=== PATIENT | male | born 1935 | race Caucasian/White ===

== ENCOUNTER 2017-07-13 22:37 | Inpatient (IN) | payer MEDICARE ==
[~2017-07-13] VITALS: Ht 182.9 cm; Wt 61.0 kg
[~2017-07-13 22:37] MED LIST: COUG100S PEG; IPRASOL INH; K-PHTAB PO; SENN1TAB PO; THERTAB15 PEG; THIA100 PEG; TYLE325T PO
[2017-07-13 22:39] VITALS: PULSE 57; RESP 8; O2SAT 81
[2017-07-13] MEDS ORDERED: SODIUM BICARBONATE 8.4% INJ 50 MEQ/50 ML SYR ONE (22:59)
[2017-07-13] MEDS ORDERED: CLINDAMYCIN 600 MG PREMIX 50 ML IV ONE (23:00)
[2017-07-13 23:06] VITALS: BP 177/69; PULSE 127; RESP 14; TEMP 95; O2SAT 100
[2017-07-13 23:17] VITALS: BP 186/78; PULSE 127; RESP 18; TEMP 95; O2SAT 99
[2017-07-13 23:18] VITALS: O2SAT 94
[2017-07-13 23:23] LABS: AUTOMATED NEUTROPHIL # 24.8 TH/MM3 (1.8-7.7); BASOPHIL % 0.1 % (0.0-2.0); EOSINOPHIL # 0.1 TH/MM3 (0-0.4); EOSINOPHIL % 0.2 % (0.0-4.0); HEMATOCRIT 37.4 % (39.0-51.0); LYMPH % 7.9 % (9.0-44.0); LYMPHOCYTE # 2.2 TH/MM3 (1.0-4.8); MEAN CORPUSCULAR HEMOGLOBIN 28.9 PG (27.0-34.0); MEAN CORPUSCULAR HGB CONC 31.4 % (32.0-36.0); MONO % 4.7 % (0.0-8.0); NEUT % 87.1 % (16.0-70.0); PLATELET COUNT 270 TH/MM3 (150-450); RED BLOOD COUNT 4.07 MIL/MM3 (4.50-5.90); RED CELL DISTRIBUTION WIDTH 16.7 % (11.6-17.2); WHITE BLOOD COUNT 28.4 TH/MM3 (4.0-11.0)
[2017-07-13 23:24] LABS: HEMO FLAGS AUTO DIFF
[2017-07-13] MEDS ORDERED: LORazepam 2 MG/ML VIAL ONE (23:32)
[2017-07-13 23:41] LABS: ANION GAP 11 MEQ/L (5-15); AST (GOT) 73 U/L (15-37); BICARBONATE 20.1 MEQ/L (21.0-32.0); BLOOD UREA NITROGEN 11 MG/DL (7-18); CHLORIDE 106 MEQ/L (98-107); GLOMERULAR FILTRATION RATE 85 ML/MIN (>89); MAGNESIUM 1.7 MG/DL (1.5-2.5); SODIUM (NA) 137 MEQ/L (136-145)
[2017-07-13 23:45] LABS: ALKALINE PHOSPHATASE 235 U/L (45-117); ALT (GPT) 52 U/L (12-78)
[2017-07-13] MEDS ORDERED: LORazepam 2 MG/ML VIAL IV PUSH ONE (23:45)
[2017-07-13 23:50] LABS: CREATINE KINASE 69 U/L (39-308)
--- NOTE | 2017-07-13 23:56 | RADRPT ---
EXAM DATE/TIME: 07/13/2017 23:44 [facility] COMPARISON: CHEST SINGLE AP, July 08, 2017, 10:23. INDICATIONS : Post intubation and central line placement. MEDICAL HISTORY : Throat cancer. SURGICAL HISTORY : None. ENCOUNTER: Subsequent ACUITY: 1 day PAIN SCORE: Non-responsive. LOCATION: Bilateral chest FINDINGS: The cardiac silhouette is normal in transverse diameter. Endotracheal tube is in good position above the minoo. A nasogastric tube is in place with its tip in the stomach. There is diffuse interstitial edema present. No pleural effusions are identified. CONCLUSION: 1. Interstitial pulmonary edema. This is new when compared with the prior exam. 2. Satisfactory position of endotracheal tube as above. 3. Central line is not identified Nj Romero MD on July 13, 2017 at 23:53 Board Certified Radiologist. This report was verified electronically.
[2017-07-14] VITALS (17 sets, daily range): BP systolic 50–95; BP diastolic 41–67; PULSE 86–101; RESP 18–38; TEMP 94.6–96; O2SAT 0–100
[2017-07-14 00:03] LABS: APTT (PATIENT) 40.9 SEC (24.3-30.1); INTERNATIONAL NORMALIZED RATIO 1.4 RATIO
[2017-07-14] MEDS ORDERED: [UNRECOGNIZED DRUG - OTHER] IV SCH ×2 (00:15)
[2017-07-14] MEDS ORDERED: SODIUM CHLOR 0.9% 1000 ML INJ 1,000 ML IV ONE ×4 (00:15→02:45)
[2017-07-14] MEDS ORDERED: SODIUM BICARBONATE IV SCH ×2 (00:15)
[2017-07-14 00:20] LABS: BANDS 33 % (0-6); EOSINOPHILS 2 % (0-4); PLATELET ESTIMATE SMEAR NORMAL (NORMAL); PLATELET MORPHOLOGY NORMAL (NORMAL); POLYS (SEG NEUTROPHILS) 62 % (16-70); SCAN/DIFF FINAL DIFF MANUAL; TOXIC GRANULATION 2+ (NORMAL); TOXIC VACUOLATION PRESENT (NONE SEEN); WBC DIFF SAMPLE 100
[2017-07-14 00:21] LABS: ACANTHOCYTES OCC (NORMAL)
[2017-07-14 00:25] LABS: BACTERIA, URINE RARE /hpf; BLOOD, URINE NEG (NEG); GLUCOSE,URINE NEG (NEG); HYALINE CAST, URINE 3 /lpf (RARE); KETONE, URINE NEG (NEG); MUCUS URINE FEW /lpf (OCC); NITRITE,URINE NEG (NEG); PH, URINE 5.5 (5.0-8.5); SQUAMOUS EPITHELIAL CELL URINE <1 /hpf (0-5); TRANSITIONAL EPI CELLS, URINE <1 /hpf; URIC ACID CRYSTALS, URINE RARE /hpf; URINE COLOR YELLOW (YELLW/STRAW)
[2017-07-14 00:27] LABS: COMMENT (UR) CATH-CULTURE IND; CULTURE IF INDICATED CATH CULTURE IND
--- NOTE | 2017-07-14 00:36 | PD ---
HPI Chief Complaint: Respiratory Distress Time Seen by Provider: 23:43 Travel History International Travel<30 days: No Contact w/Intl Traveler<30days: No Traveled to known affect area: No History of Present Illness HPI pt is 82 yr old male from a [place] who developed respiratoy failure at the [place] and possible aspiration PNA the paramedics attempted to intubate in route but there was much vomitus coming out of the ET tube severe assume that they were in the esophagus and pulled the tube patient is feeling extremitas when he arrives in the ER without and airway is being BVM patient is minimally responsive. Frail thin cachectic appearance covered in vomitus in the mouth and chest. Patient's blood pressure is not readable on the monitor and quickly ultrasound probe shows cardiac standstill CPR begins immediately. Patient was recently discharged from our hospital to the [facility]. On arrival He had been asked about full code and including intubation and he and his sister and son signed paper saying he would like to have everything done. I immediately secured his airway and intubate him without sedation or complication . however much vomitus does come out of his ET tube he is in cardiac arrest and CPR the incident immediately PFSH Past Medical History Arthritis: Yes Blood Disorders: No Anxiety: No Depression: Yes (UPSET ABOUT WEIGHT LOSS) Cancer: Yes (THROAT) Cardiovascular Problems: No Chemotherapy: Yes Endocrine: No Genitourinary: No Immune Disorder: No Musculoskeletal: No Neurologic: No Psychiatric: Yes Respiratory: No Radiation Therapy: Yes Past Surgical History Appendectomy: Yes Tonsillectomy: Yes Social History Alcohol Use: Yes Tobacco Use: Yes Substance Use: No Allergies-Medications (Allergen,Severity, Reaction): Coded Allergies: No Known Allergies (Unverified , 07/13/17) Reported Meds & Prescriptions Reported Meds & Active Scripts Active Thera/Beta-Carotene (Multiple Vitamin) 1 Tab Tab 1 Tab PEG DAILY Gnp Vitamin B-1 (Thiamine HCl) 100 Mg Tab 100 Mg PEG DAILY Senna Plus 8.6-50 mg (Sennosides-Docusate Sodium) 8.6 Mg-50 Mg Tab 1 Tab PO BID Cough Syrup (Guaifenesin) 100 Mg/5 Ml Syrp 200 Mg PEG Q4H PRN K-Phos (Potassium Phosphate Monobasic) 500 Mg Tab 1,000 Mg PO Q12HR 5 Days Tylenol (Acetaminophen) 325 Mg Tab 650 Mg PO Q6H PRN Duoneb (Ipratropium-Albuterol Neb) 0.5-2.5 Mg/3 Ml Neb 1 Nebule INH Q4HR NEB Reported Jevity 1.5 Meng (Nutritional Supplements) 0.06 Gram-1.5 Kcal/Ml Liq Docusate Sodium-Senna (Sennosides-Docusate Sodium) 8.6-50 Mg Tab 1 Tab PO BID Nicotine Patch (Nicotine) 14 Mg/24 Hr Patch 14 Mg T-DERMAL DAILY Review of Systems ROS Limitations: Intubated, Altered Mental Status, Unresponsive Except as stated in HPI: all other systems reviewed are Neg Physical Exam Narrative GENERAL: Patient is a thin cachectic unresponsive covered in vomitus as he comes into the critical care exam room he is being BVM no airway secured in this patient. intubated by this MTres. SKIN: Warm and dry and pale HEAD: Atraumatic. Normocephalic. EYES: Pupils equal and round. No scleral icterus. No injection or drainage. ENT: No nasal bleeding or discharge. . He has vomitus in his oropharynx I directly visualize his vocal cords and pass the 7.5 ET tube without complications however much vomitus comes out of the tube NECK: Trachea midline. No JVD. Thin cachectic CARDIOVASCULAR: Cardiac standstill.... Cardiac arrest RESPIRATORY: After intubation with an ET tube he has coarse breath sounds greater on the right than the left. I pulled the ET tube back and then he has coarse breath sounds bilaterally. GASTROINTESTINAL: Abdomen soft, non-tender , PEG tube is in the left midabdomen Hepatic and splenic margins not palpable. MUSCULOSKELETAL: Extremities . No obvious deformities. NEUROLOGICAL: Unresponsive minimal to no gag on intubation. PSYCHIATRIC: Unresponsive in extremis Data Data Last Documented VS Vital Signs Date Time Temp Pulse Resp B/P (MAP) Pulse Ox O2 Delivery O2 Flow Rate FiO2 07/14/17 00:08 100 100 07/13/17 23:18 Ventilator 07/13/17 23:17 95.0 127 18 Orders Orders B-Type Natriuretic Peptide (07/13/17 22:54) Ckmb (Isoenzyme) Profile (07/13/17 22:54) Complete Blood Count With Diff (07/13/17 22:54) Comprehensive Metabolic Panel (07/13/17 22:54) Magnesium (Mg) (07/13/17 22:54) Prothrombin Time / Inr (Pt) (07/13/17 22:54) Act Partial Throm Time (Ptt) (07/13/17 22:54) Troponin I (07/13/17 22:54) Chest, Single Ap (07/13/17 22:54) Ecg Monitoring (07/13/17 22:54) Bilateral Bp Monitoring (07/13/17 22:54) Iv Access Insert/Monitor (07/13/17 22:54) Oximetry (07/13/17 22:54) Oxygen Administration (07/13/17 22:54) Sodium Bicarbonate 8.4% Inj (Sodium Bica (07/13/17 22:59) Clindamycin 600 Mg Premix (Cleocin 600 M (07/13/17 23:00) Lactic Acid Sepsis Protocol (07/13/17 23:13) Blood Culture (07/13/17 23:13) Lorazepam Inj (Ativan Inj) (07/13/17 23:32) Fentanyl Inj (Fentanyl Inj) (07/13/17 23:45) Lorazepam Inj (Ativan Inj) (07/13/17 23:45) Sputum Culture And Gram Stain (07/14/17 00:03) Piperacil-Tazo 4.5 Gm Premix (Zosyn 4.5 (07/14/17 00:15) Lipase (07/14/17 00:05) Urinalysis - C+S If Indicated (07/14/17 00:06) Sodium Chlor 0.9% 1000 Ml Inj (Ns 1000 M (07/14/17 00:15) Sodium Chlor 0.9% 1000 Ml Inj (Ns 1000 M (07/14/17 00:15) Dextrose 5% In Wate... W/Sodium Bicarbon (07/14/17 00:15) Urinary Catheter Insert/Apply (07/14/17 00:04) Restraints Non-Violent JOANN.Q3H (07/14/17 00:04) Admit Order (Ed Use Only) (07/14/17 00:10) Labs Laboratory Tests Test 07/13/17 23:10 07/13/17 23:21 07/13/17 23:25 07/13/17 23:34 White Blood Count 28.4 TH/MM3 Red Blood Count 4.07 MIL/MM3 Hemoglobin 11.7 GM/DL Hematocrit 37.4 % Mean Corpuscular Volume 92.0 FL Mean Corpuscular Hemoglobin 28.9 PG Mean Corpuscular Hemoglobin Concent 31.4 % Red Cell Distribution Width 16.7 % Platelet Count 270 TH/MM3 Mean Platelet Volume 9.0 FL Neutrophils (%) (Auto) 87.1 % Lymphocytes (%) (Auto) 7.9 % Monocytes (%) (Auto) 4.7 % Eosinophils (%) (Auto) 0.2 % Basophils (%) (Auto) 0.1 % Neutrophils # (Auto) 24.8 TH/MM3 Lymphocytes # (Auto) 2.2 TH/MM3 Monocytes # (Auto) 1.3 TH/MM3 Eosinophils # (Auto) 0.1 TH/MM3 Basophils # (Auto) 0.0 TH/MM3 CBC Comment AUTO DIFF Differential Total Cells Counted 100 Neutrophils % (Manual) 62 % Band Neutrophils % 33 % Lymphocytes % 3 % Eosinophils % 2 % Neutrophils # (Manual) 27.0 TH/MM3 Differential Comment FINAL DIFF MANUAL Toxic Granulation 2+ Toxic Vacuolation PRESENT Platelet Estimate NORMAL Platelet Morphology Comment NORMAL Acanthocytes OCC Blood Urea Nitrogen 11 MG/DL Creatinine 0.86 MG/DL Random Glucose 110 MG/DL Total Protein 5.6 GM/DL Albumin 1.4 GM/DL Calcium Level 8.0 MG/DL Magnesium Level 1.7 MG/DL Alkaline Phosphatase 235 U/L Aspartate Amino Transf (AST/SGOT) 73 U/L Alanine Aminotransferase (ALT/SGPT) 52 U/L Total Bilirubin 1.0 MG/DL Sodium Level 137 MEQ/L Potassium Level 4.0 MEQ/L Chloride Level 106 MEQ/L Carbon Dioxide Level 20.1 MEQ/L Anion Gap 11 MEQ/L Estimat Glomerular Filtration Rate 85 ML/MIN Phosphorus Level 3.6 MG/DL Total Creatine Kinase 69 U/L Troponin I LESS THAN 0.02 NG/ML B-Type Natriuretic Peptide 165 PG/ML Lipase 60 U/L Lactic Acid Level 4.3 mmol/L Prothrombin Time 16.0 SEC Prothromb Time International Ratio 1.4 RATIO Activated Partial Thromboplast Time 40.9 SEC Urine Color YELLOW Urine Turbidity HAZY Urine pH 5.5 Urine Specific [place] 1.024 Urine Protein TRACE mg/dL Urine Glucose (UA) NEG mg/dL Urine Ketones NEG mg/dL Urine Occult Blood NEG Urine Nitrite NEG Urine Bilirubin NEG Urine Urobilinogen 2.0 MG/DL Urine Leukocyte Esterase NEG Urine RBC 5 /hpf Urine WBC 2 /hpf Urine Squamous Epithelial Cells <1 /hpf Urine Transitional Epithelial Cells <1 /hpf Urine Uric Acid Crystals RARE /hpf Urine Amorphous Sediment RARE Urine Bacteria RARE /hpf Urine Hyaline Casts 3 /lpf Urine Mucus FEW /lpf Microscopic Urinalysis Comment CATH-CULTURE IND MDM Medical Decision Making Medical Screen Exam Complete: Yes Emergency Medical Condition: Yes Differential Diagnosis pt is 82 male from [place] was discharge from inpt today and now has Aspiration PNA appearance comes from MS in destress aspiration vomiting and Paramedics attempted to INtubate and vomitus poured from tube they pulled it assuming gastric tube, I tube immediately and vomitus came out of tube again but sat improved . I then started CPR and gave epi amp and Hco3 immediately to pt and U/S cardiac stand still then HCO3 Ca Cl and pt regained Heart rhythm and US showed good contractilitiy Narrative Course I did a immediate intubation of this patient without anesthesia or sedation he was nonreactive as I intubated him much vomitus came out of his ET tube easily suction that and then to the cardiac probe on his chest saw no cardiac activity and CPR was started and then gave him an epi followed by a bicarbonate continue CPR still cardiac standstill on the ultrasound bedside liter fluid was started another epi was given CPR was continued he had PA on the monitor and cardiac standstill on the bedside sonogram another bicarbonate was given calcium chloride and CPR continued after the second bicarbonate and third epi he had normal cardiac conduction with good left ventricular contraction and a BP returned he needed no more medication but I did put up a bicarbonate drip with 3 A of bicarbonate into a liter of D5 water running 150 cc an hour to keep him alkalinizing fearing that his acidosis was using cardiac standstill patient cases called to the ICU Dr. Kelly took the admission from me attempted to put an eye central line in his IJ on the left I got cannulation with the needle but was unable to thread the wire at that point we had 3 peripheral IVs and he was stable enough to be admitted to the ICU critical care time on this patient is 120 minutes Critical Care Narrative 120 of critical care minutes intubation reassessing his cardiac activity with ultrasound bedside by ash Tee Giving cardiac meds to resuscitate him then putting him on a bicarbonate drip. Reassessing him multiple times and getting him admitted to the ICU. His vitals were stable when he left our ER Procedures Procedure Narrative I intubated this patient using RSI however patient did not need any sedation he was obtunded on arrival and an emergent need of intubation with a 4 Mac blade I immediately elevated the epiglottis saw the vocal cords past ET tube without complications removed the stylette immediately vomitus came out of the ET tube he has no chest. It vomitus in his lungs suction was done airway was secured and inflated 10 cc syringe and respiratory took over to secure the tube in place chest x-ray confirms 3 cm above the minoo Central line placement in the IJ on the left neck is ultrasound technique cannulation was successful but passing the guidewire was not and therefore I pulled the wire at the needle and applied pressure medications admitted with 3 peripheral IVs Physician Communication Physician Communication Spoke to Dr. Kelly of the ICU she accepts the patient and takes of her care Diagnosis Primary Impression: Cardiac arrest Additional Impression: Aspiration pneumonia Admitting Information Admitting Physician Requests: Admit Arhcie Su MD Jul 14, 2017 00:36
[2017-07-14] MEDS ORDERED: CHLORHEXIDINE GLUCONATE 2 % 1 PACK (2 CLOTHS) TOP PRN (00:45)
[2017-07-14] MEDS ORDERED: LACTULOSE SYRUP 20 GM/30 ML CUP PO PRN (00:45)
[2017-07-14] MEDS ORDERED: MAGNESIUM SULFATE 1 GM PREMIX 100 ML IV ONE (00:45)
[2017-07-14] MEDS ORDERED: RESP: ALBUTEROL 2.5 MG/3 ML NEB (PRN) INH (00:45)
[2017-07-14] MEDS ORDERED: ACETAMINOPHEN 325 MG TAB PO PRN (00:45)
[2017-07-14] MEDS ORDERED: MISCELLANEOUS NURSING INFORMATION XX SCH (00:45)
[2017-07-14] MEDS ORDERED: SODIUM CHLORIDE 0.9% FLUSH 10 ML FLUSH IV FLUSH PRN (00:45)
[2017-07-14] MEDS ORDERED: BISACODYL 10 MG SUPP RECTAL PRN (00:45)
[2017-07-14] MEDS ORDERED: ONDANSETRON HCL 4 MG/2 ML VIAL IV PUSH PRN (00:45)
[2017-07-14] MEDS ORDERED: MAGNESIUM HYDROXIDE SUSP 30 ML CUP PO PRN (00:45)
[2017-07-14] MEDS ORDERED: SENNOSIDES 8.6 MG TAB PO PRN (00:45)
[2017-07-14] MEDS ORDERED: NOREPINEPHRINE 4 MG/4 ML AMP ONE (00:49)
[2017-07-14] MEDS ORDERED: LEVOFLOXACIN 750 MG PREMIX INJ 150 ML IV SCH (01:00)
[2017-07-14] MEDS ORDERED: TERBUTALINE INJ 1 MG/ML AMP SQ PRN ×2 (01:00→06:00)
[2017-07-14] MEDS ORDERED: Vancomycin Consult Pharmacy 1 EA OTHER SCH (01:00)
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
[2017-07-14] MEDS: PIPERACIL-TAZO 4.5 GM PREMIX 100 ML IV SCH ×2 (01:01→05:23)
[2017-07-14] MEDS: NOREPINEPHRINE INJ 4 MG in SODIUM CHLOR 0.9% 250 ML INJ 246 ML IV PRN ×2 (01:02→05:27)
[2017-07-14 01:14] LABS: BLOOD GAS BASE EXCESS -7.3 mmol/L (-2-2); BLOOD GAS CARBOXYHEMOGLOBIN 0.5 % (0-4); BLOOD GAS HCO3 21 mmol/L (22-26); BLOOD GAS METHEMOGLOBIN 0.8 % (0-2); BLOOD GAS O2 HGB SATURATION 97 % (90-100); BLOOD GAS OXYGEN CONTENT 14.2 Vol % (12.0-20.0); BLOOD GAS PCO2 69 mmHg (38-42); BLOOD GAS PO2 147 mmHg (61-120); BLOOD GAS TOTAL HGB 10.2 G/DL (12.0-16.0); TEMP CORR TO 98.6
[2017-07-14 01:16] LABS: CRITICAL VALUE YES; DRAW SITE LT RADIAL; FIO2 100 %; NUMBER OF ARTERIAL PUNCTURES 1; OXYGEN DEVICE VENTILATOR; STAT NO; ULNAR PULSE PRESENT; VENT SETTINGS AC/RR18/VT550/PEEP10
[2017-07-14 01:28] LABS: LACTIC ACID GHOST NOT REPORTABLE
[2017-07-14] MEDS ORDERED: fentaNYL DRIP 250 ML IV PRN (01:30)
[2017-07-14] MEDS ORDERED: MIDAZOLAM HCL 2 MG/2 ML VIAL IV PUSH PRN (01:30)
[2017-07-14] MEDS ORDERED: DIATRIZOATE MEGLUM/DIATRIZOATE SOD 120 ML BTL (for RAD DIAG) PEG ONE (01:50)
[2017-07-14] MEDS ORDERED: IOHEXOL 350 MG/ML 10 ML VIAL (for RAD DIAG) IVCONTRAST ONE (01:59)
[2017-07-14] MEDS ORDERED: VANCOMYCIN 1,000 MG/NS 250 ML IV ONE ×2 (02:00)
[2017-07-14] MEDS ORDERED: NICO14DI T-DERMAL (02:20)
[2017-07-14] MEDS ORDERED: DOCU8.6T PO (02:20)
--- NOTE | 2017-07-14 02:23 | RADRPT ---
EXAM DATE/TIME: 07/14/2017 01:43 [facility] COMPARISON: No previous studies available for comparison. INDICATIONS : Altered mental status. RADIATION DOSE: 43.86 CTDIvol (mGy) ; Tabletop CT Head MEDICAL HISTORY : Throat cancer. SURGICAL HISTORY : Appendectomy. Peg tube. ENCOUNTER: Initial ACUITY: 1 day PAIN SCALE: Non-responsive LOCATION: cranial TECHNIQUE: Multiple contiguous axial images were obtained of the head. Using automated exposure control and adjustment of the mA and/or kV according to patient size, radiation dose was kept as low as reasonably achievable to obtain optimal diagnostic quality images. DICOM format image data is av ailable electronically for review and comparison. FINDINGS: Noncontrast axial head CT demonstrates the ventricles to be enlarged with a prominent sulcal pattern compatible with atrophy. No acute intracranial hemorrhage, acute cortical infarction, mass or midline shift is seen. 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 Posterior fossa struct ures are unremarkable. Bone windows demonstrate no abnormality. CONCLUSION: Atrophy. No evidence of acute intracranial pathology. Nj Romero MD on July 14, 2017 at 2:20 Board Certified Radiologist. This report was verified electronically.
[2017-07-14] MEDS ORDERED: JEVILIQ12 (02:24)
--- NOTE | 2017-07-14 02:31 | RADRPT ---
EXAM DATE/TIME: 07/14/2017 01:48 [facility] COMPARISON: CT ABDOMEN & PELVIS W CONTRAST, July 12, 2017, 15:58. INDICATIONS : Diffuse abdominal pain. Evaluate peg-tube placement. IV CONTRAST: 95 cc Omnipaque 350 (iohexol) IV ; Cumulative dose for multiple exams. ORAL CONTRAST: No oral contrast ingested. RADIATION DOSE: 11.98 CTDIvol (mGy) ; Combined studies - Thorax/Abdomen/Pelvis MEDICAL HISTORY : Throat cancer. SURGICAL HISTORY : Appendectomy. Peg tube. ENCOUNTER: Initial ACUITY: 1 day PAIN SCALE: Non-responsive LOCATION: abdomen TECHNIQUE: Volumetric scanning of the abdomen and pelvis was performed. Using automated exposure control and ad justment of the mA and/or kV according to patient size, radiation dose was kept as low as reasonably achievable to obtain optimal diagnostic quality images. DICOM format image data is available electro nically for review and comparison. FINDINGS: Moderate size bilateral pleural effusions are identified. There is subsegmental atelectasis in the b oth bases. Moderate ascites is present. The liver and spleen are normal in size and no focal defects are identif ied. Air is identified within the biliary tree. The pancreas demonstrates no evidence of mass and the re is no dilatation of the pancreatic duct. The adrenal glands are unremarkable. The right kidney is unremarkable. A 2 mm no obstructing left renal stone is present. Gastrostomy tube is in the expected position. A Jj catheter is present within the bladder which does not allow for evaluation. There is a large amount of stool within the rectum characteristic of fecal impaction CONCLUSION: 1. Gastrostomy tube in expected position 2. Fecal impaction 3. Ascites and small bowel ileus Nj Romero MD on July 14, 2017 at 2:21 Board Certified Radiologist. This report was verified electronically.
--- NOTE | 2017-07-14 02:34 | RADRPT ---
EXAM DATE/TIME: 07/14/2017 01:48 [facility] COMPARISON: No previous studies available for comparison. INDICATIONS : Pneumonia. IV CONTRAST: 95 cc Omnipaque 350 (iohexol) IV ; Cumulative dose for multiple exams. RADIATION DOSE: 11.98 CTDIvol (mGy) ; Combined studies - Thorax/Abdomen/Pelvis MEDICAL HISTORY : Throat cancer. SURGICAL HISTORY : Appendectomy. Peg tube. ENCOUNTER: Initial ACUITY: 1 day PAIN SCALE: Non-responsive LOCATION: chest TECHNIQUE: Volumetric scanning of the chest was performed. Using automated exposure control and adjustment of t he mA and/or kV according to patient size, radiation dose was kept as low as reasonably achievable to obtain optimal diagnostic quality images. DICOM format image data is available electronically for review and comparison. Follow-up recommendations for detected pulmonary nodules are based at a minimum on nodule size and pa tient risk factors according to Fleischner Society Guidelines. FINDINGS: There is patchy alveolar disease bilaterally compatible with edema or pneumonia. Moderate size bilate ral pleural effusions are identified. There is subsegmental atelectasis in the both bases. There is a 2.3 cm mass in the right apex. Malignancy is not excluded. Examination of the mediastinum demonstrates no abnormally enlarged lymph nodes by CT criteria. No axi llary or hilar abnormalities are identified. Coronary artery calcifications are present. CONCLUSION: 1. Patchy alveolar disease characteristic of edema or pneumonia. 2. Moderate bilateral effusions 3. 2.3 cm right upper lobe mass. Malignancy is not excluded. Nj Romero MD on July 14, 2017 at 2:30 Board Certified Radiologist. This report was verified electronically.
--- NOTE | 2017-07-14 03:15 | PD.PROCEDR ---
Procedure Note Procedure DATE: 07/14/17 CENTRAL LINE PLACEMENT: Left IJ vein. INDICATION: Central venous access CONSENT Procedure was done emergently as patient is hypotensive with pressors running and in need of central access. DESCRIPTION OF THE PROCEDURE The patient was placed in supine position, Trendelenburg. The skin was cleansed with Chloraprep x3. Additional barrier precautions included large sterile drape, sterile gloves, sterile gown, face mask, and hat. 1 % lidocaine was used for local anesthesia. Under direct ultrasound guidance and on single attempt, the vein was accessed with an introducer needle. The guide wire was advanced and placement confirmed with u/s. The tract was dilated. Using Seldinger technique a 7 [place] 20 cm antimicrobial coated triple-lumen catheter was advanced to a depth of 20 centimeters. The guide wire was removed. All ports had good return of dark venous blood and flushed easily with saline. The central line was secured with Stat-lock. A sterile dressing with antibiotic disc was applied. ESTIMATED BLOOD LOSS: Minimal COMPLICATIONS: No apparent complications. STAT chest x-ray is pending Bonita Kelly MD Jul 14, 2017 03:15
[2017-07-14] MEDS ORDERED: POTASSIUM CHLOR 20 MEQ PREMIX 100 ML IV PRN ×2 (03:30)
[2017-07-14] MEDS ORDERED: POTASSIUM PHOSPHATE MONOBASIC 500 MG TAB PO PRN (03:30)
[2017-07-14] MEDS ORDERED: MAGNESIUM SULFATE INJ 4 GM in SODIUM CHLORIDE 0.9% INJ 92 ML IV PRN (03:30)
[2017-07-14] MEDS ORDERED: SODIUM PHOSPHATE INJ 30 MMOL in SODIUM CHLOR 0.9% 250 ML INJ 240 ML IV PRN (03:30)
[2017-07-14] MEDS ORDERED: POTASSIUM PHOSPHATE MONOBASIC 500 MG TAB PO/TUBE PRN (03:30)
[2017-07-14] MEDS ORDERED: POTASSIUM CHLORIDE 25 MEQ EFFERVESCENT TAB PO PRN (03:30)
[2017-07-14] MEDS ORDERED: POTASSIUM PHOSPHATE INJ 30 MMOL in SODIUM CHLOR 0.9% 250 ML INJ 250 ML IV PRN (03:30)
[2017-07-14] MEDS ORDERED: POTASSIUM CHLOR 40 MEQ PREMIX 100 ML IV PRN ×2 (03:30)
[2017-07-14] MEDS ORDERED: MAGNESIUM OXIDE 400 MG TAB PO PRN (03:30)
[2017-07-14] MEDS ORDERED: MAGNESIUM SULFATE INJ 2 GM in SODIUM CHLORIDE 0.9% INJ 96 ML IV PRN (03:30)
[2017-07-14 03:52] LABS: BLOOD GAS VENOUS BASE EXCESS -5.4 mmol/L (-2-2); BLOOD GAS VENOUS HCO3 23 mmol/L (22-26); BLOOD GAS VENOUS O2 CONTENT 9.3 Vol % (9.0-17.0); BLOOD GAS VENOUS O2 HGB SAT 59 % (70-76); BLOOD GAS VENOUS PCO2 73 mmHg (44-48); BLOOD GAS VENOUS PO2 39 mmHg (35-40); BLOOD GAS VENOUS pH 7.12 (7.360-7.400); CRITICAL VALUE YES; DRAW SITE LINE; FIO2 70 %; OXYGEN DEVICE VENTILATOR; STAT YES; TEMP CORR TO 98.6; VENT SETTINGS AC/16/600/PEEP 10
[2017-07-14] MEDS ORDERED: CHLORHEXIDINE GLUCONATE 2 % 1 PACK (2 CLOTHS) TOP SCH (04:00)
[2017-07-14] MEDS ORDERED: RESP: ALBUTEROL 2.5 MG/IPRATROPIUM 0.5 MG NEB (SCH) INH (04:00)
[2017-07-14] MEDS ORDERED: VASOPRESSIN INJ 40 UNITS in DEXTROSE 5% IN WATER 100ML INJ 98 ML IV SCH ×2 (04:36)
[2017-07-14] MEDS ORDERED: LACTATED RINGER'S 1000 ML INJ 1,000 ML IV SCH (04:45)
[2017-07-14] MEDS ORDERED: CISATRACURIUM BESYLATE 20 MG/10 ML VIAL IV PUSH ONE (05:00)
[2017-07-14] MEDS ORDERED: VASOPRESSIN 20 UNITS/ML VIAL (IVTITR) ONE (05:14)
[2017-07-14 05:19] LABS: BLOOD GAS BASE EXCESS -7.9 mmol/L (-2-2); BLOOD GAS CARBOXYHEMOGLOBIN 0.3 % (0-4); BLOOD GAS HCO3 20 mmol/L (22-26); BLOOD GAS O2 HGB SATURATION 83 % (90-100); BLOOD GAS OXYGEN CONTENT 13.2 Vol % (12.0-20.0); BLOOD GAS PCO2 64 mmHg (38-42); BLOOD GAS PO2 59 mmHg (61-120); BLOOD GAS TOTAL HGB 11.3 G/DL (12.0-16.0); CRITICAL VALUE YES; OXYGEN DEVICE VENTILATOR; TEMP CORR TO 98.6
[2017-07-14 05:20] LABS: DRAW SITE ART LINE; FIO2 100 %; STAT NO; VENT SETTINGS PC/AC
[2017-07-14] MEDS: HYDROCORTISONE SOD SUCCINATE 100 MG VIAL IV PUSH SCH ×2 (05:25→05:55)
[2017-07-14 05:38] LABS: LACTIC ACID GHOST NOT REPORTABLE
--- NOTE | 2017-07-14 05:44 | RADRPT ---
EXAM DATE/TIME: 07/14/2017 03:26 [facility] COMPARISON: CHEST SINGLE AP, July 13, 2017, 23:44. INDICATIONS : Central line placement, left internal jugular approach. MEDICAL HISTORY : Throat Ca SURGICAL HISTORY : None. ENCOUNTER: Initial ACUITY: 1 day PAIN SCORE: Non-responsive. LOCATION: Bilateral chest FINDINGS: The cardiac silhouette is normal in transverse diameter. There is patchy alveolar disease bilaterally compatible with edema or pneumonia. The findings have worsened when compared with the prior examinat ion. A left sided internal jugular vein catheter is in place without pneumothorax with its tip in the superior vena cava. CONCLUSION: 1. Uncomplicated line placement. No evidence of pneumothorax. 2. Worsening pulmonary edema Nj Romero MD on July 14, 2017 at 5:42 Board Certified Radiologist. This report was verified electronically.
[2017-07-14] MEDS ORDERED: METOCLOPRAMIDE HCL 10 MG/2 ML VIAL IV PUSH SCH ×2 (06:00→14:00)
[2017-07-14] MEDS ORDERED: PHENYLEPHRINE INJ 160 MG in DEXTROSE 5% IN WATE 500 ML INJ 484 ML IV PRN ×2 (06:00)
[2017-07-14] MEDS ORDERED: EPOPROSTENOL NEB SOLUTION 50 NG/KG/MIN 100 ML NEB SCH ×2 (06:15)
[2017-07-14] MEDS ORDERED: EPINEPHrine (1:1000) INJ 2 MG in DEXTROSE 5% IN WATER INJ 250 ML IV PRN ×2 (06:15)
[2017-07-14] MEDS ORDERED: MIDAZOLAM HCL 2 MG/2 ML VIAL IV PUSH ONE (06:45)
--- NOTE | 2017-07-14 06:45 | PD.PROCEDR ---
Procedure Note Procedure Date: 07/14/17 Procedure: Fiberoptic bronchoscopy with bronchoalveolar lavage, diagnostic and therapeutic Indication: Acute respiratory failure and ARDS secondary to aspiration with refractory hypoxemia and elevated peak airway pressures. Details of procedure: Informed consent was obtained from patient's daughter, Diamante after discussion of risks, benefits, alternatives.. The patient is on 100% FiO2 via endotracheal tube with sats in mid 80s.He is sedated on fentanyl drip and unresponsive. Versed 2mg IV and Nimbex 10 mg IV . I entered the endotracheal tube with a flexible bronchoscope. There were white secretions throughout pulmonary tree that were suctioned out with assistance of small 3 mL saline washes in RUL, RML , RLL, lingula and LLL. BAL was performed in RML with 30 ML instilled and 15 mL return that was sent for Gram stain, culture, sensitivity. Sats improved to 98% following bronchoscopy. Patient tolerated procedure well without apparent complication. Bonita Kelly MD Jul 14, 2017 06:45
[2017-07-14] MEDS ORDERED: MICAFUNGIN INJ 150 MG in SODIUM CHLORIDE 0.9% INJ 100 ML IV SCH (07:00)
--- NOTE | 2017-07-14 07:36 | EKG ---
Date Performed: 07/13/2017 Time Performed: 23:04:49 PTAGE: 82 years EKG: Baseline artifact present ATRIAL FIBRILLATION WITH RAPID VENTRICULAR RESPONSE LOW QRS VOLTA GE IN EXTREMITY LEADS LATERAL MYOCARDIAL INFARCTION ABNORMAL ECG Compared to prior electrocardiogram, atrial fibrillation is now present PREVIOUS TRACING : 07/07/2017 18.17 DOCTOR: Phong Seo Interpretating Date/Time 07/14/2017 07:35:21
[2017-07-14] MEDS ORDERED: CHLORHEXIDINE 0.12% (ORAL KIT) 15 ML CUP MT SCH (08:00)
--- NOTE | 2017-07-14 08:23 | PD.CONS ---
HPI History of Present Illness This is a 82 year old male with a history of tonsillar cancer, s/p resection, chemotherapy, and radiation, about 5-6 years ago in [place]. Since that time, he has had issues with foods and liquids going down the wrong pipe and has lost about 60 lbs over the past two years. He was recently hospitalized from 07/07 to 07/13 for dysphagia and was evaluated by our service during his stay. Modified barium swallow (07/08/17)---> severe oral phase and severe pharyngeal phase dysphagia. Poor muscular function is present with absent epiglottic inversion resulting in poor airway protection during reflexive swallows triggered. The patient did not demonstrate reflexive cough in response to the above mentioned aspiration. He then underwent EGD with PEG tube placement (07/09)--1. An esophageal stricture was found in the distal esophagus, scope could not advanced, TTS Balloon Dilation done followed by 12 mm dilator, linear minor laceration of esophagus 2. 20 F PEG tube placed successfully. On 07/12, he was noted to have an increase WBC of 27.2 from 9.5. KUB with gastrografin via the G tube (07/12/17)---> Gastrostomy tube in the stomach. CT scan abdomen and pelvis with iv contrast (07/12/17)---> PEG tube is located in the distal gastric body. A small amount of free intraperitoneal air is present. However, this can be a normal finding if the tube has been recently placed or manipulated. Suggest correlating with the clinical history. Moderate sized bilateral pleural effusions with associated compressive atelectasis. There is also a small volume of free fluid the abdomen and pelvis along with anasarca. There is a 15 mm left upper lobe noncalcified pulmonary nodule. Given the history of head and neck cancer this could represent a metastatic lesion. Suggest correlating with the patient's prior chest CT examinations. Nonacute findings include severe atherosclerotic lesion. Suggest correlating with the patient's prior chest CT examinations. Nonacute findings include severe atherosclerotic disease and urinary bladder diverticulum. CXR (07/13/17)----> Interstitial pulmonary edema. This is new when compared with the prior exam. Satisfactory position of endotracheal tube as above. Central line is not identified. Yesterday, the patient continued to have a wet cough, but insisted on being discharged and was subsequently discharged to a halfway facility yesterday afternoon. His family reports that when they visited him yesterday evening at the SNF, he was doing good and not in any distress. However, later in the evening, he developed respiratory distress and [facility] was called. Upon there arrival he was hypoxic and required intubation. He was noted to have gastric secretions in the ETT. Therefore the ETT was removed and he was reinubated. He then became bradycardic and went into PEA. He received CPR for 11 minutes and received epinephrine 3, bicarbonate 2 amps, calcium chloride 1, before ROSC was obtained. He was then transferred to the intensive care unit. Rpt CXR with worsening pulmonary edema. CT thorax 07/14 with patchy alveolar disease characteristic of edema or penumonia. Moderate bilateral effusions, 2.3 cm right upper lobe mass. Malignancy is not excluded. CT abdomen and pelvis with IV contrast (07/14/17)---> Gastrostomy tube in expected position. Fecal impaction, ascites and small bowel ileus. He is currently nonresponsive on the mechanical ventilator, on multiple pressors. GI has been consulted for ileus/fecal impaction. (Tran Arnold) PFSH Past Medical History Tonsillar cancer (S/P surgery, chemotherapy, radiation (35 tx) OA Dysphagia Pulmonary nodule Past Surgical History Tonsil biopsy Right tonsil resection Appendectomy Left femur fx repair EGD with peg tube placement (Tran Arnold) Coded Allergies: No Known Allergies (Unverified , 07/13/17) Medications Allergies Coded Allergies Type Severity Reaction Last Updated Verified No Known Allergies 07/13/17 No Active Scripts Medications Dose Route/Sig Max Daily Dose Days Date Category Jevity 1.5 Meng (Nutritional Supplements) 0.06 Gram-1.5 Kcal/Ml Liq 07/14/17 Reported Docusate Sodium-Senna (Sennosides-Docusate Sodium) 8.6-50 Mg Tab 1 Tab PO BID 07/14/17 Reported Nicotine Patch (Nicotine) 14 Mg/24 Hr Patch 14 Mg T-DERMAL DAILY 07/14/17 Reported Thera/Beta-Carotene (Multiple Vitamin) 1 Tab Tab 1 Tab PEG DAILY 07/13/17 Rx Gnp Vitamin B-1 (Thiamine HCl) 100 Mg Tab 100 Mg PEG DAILY 07/13/17 Rx Senna Plus 8.6-50 mg (Sennosides-Docusate Sodium) 8.6 Mg-50 Mg Tab 1 Tab PO BID 07/13/17 Rx Cough Syrup (Guaifenesin) 100 Mg/5 Ml Syrp 200 Mg PEG Q4H PRN 07/13/17 Rx K-Phos (Potassium Phosphate Monobasic) 500 Mg Tab 1,000 Mg PO Q12HR 5 07/13/17 Rx Tylenol (Acetaminophen) 325 Mg Tab 650 Mg PO Q6H PRN 07/13/17 Rx Duoneb (Ipratropium-Albuterol Neb) 0.5-2.5 Mg/3 Ml Neb 1 Nebule INH Q4HR NEB 07/13/17 Rx Family History Son, ? 52 lymph nodes removed Father from intestinal tract cancer Mother unknown cancer. Social History Smokes 1/2 pack a day, since age of 12-13 yo Alcohol-1 shot of rum occasionally since 2 yrs ago to help with sleep Denies illicit drug use (Tran Arnold) Review of Systems ROS Unable to obtain (Tran Arnold) GI Exam Vitals I&O Vital Signs Date Time Temp Pulse Resp B/P (MAP) Pulse Ox O2 Delivery O2 Flow Rate FiO2 07/14/17 06:20 97 100 07/14/17 06:18 101 50/41 07/14/17 06:13 96 61/44 07/14/17 06:00 96 07/14/17 05:27 96 52/39 07/14/17 04:50 84 100 07/14/17 04:36 96 52/39 07/14/17 04:00 94 07/14/17 04:00 95.0 94 38 82/52 (62) 93 07/14/17 04:00 100 07/14/17 03:00 89 07/14/17 02:16 100 100 07/14/17 01:40 100 100 07/14/17 01:27 100 100 07/14/17 01:21 95.2 87 18 95/67 (76) 100 Ventilator 07/14/17 01:21 07/14/17 01:11 89 18 79/64 (69) 99 Ventilator 100 07/14/17 01:04 96.0 86 18 75/54 (61) 96 Ventilator 100 07/14/17 01:02 81 55/47 07/14/17 00:37 100 07/14/17 00:23 94.6 100 18 85/48 (60) 99 Ventilator 100 07/14/17 00:20 100 07/14/17 00:20 96 100 07/14/17 00:08 100 100 07/13/17 23:18 94 Ventilator 100 07/13/17 23:18 95 Ventilator 100 07/13/17 23:17 95.0 127 18 186/78 (114) 99 Ventilator 100 07/13/17 23:06 95.0 127 14 177/69 (105) 100 Ventilator 100 07/13/17 22:39 57 8 81 I/O 07/13/17 07/13/17 07/13/17 07/14/17 07/14/17 07/14/17 07:00 15:00 23:00 07:00 15:00 23:00 Intake Total 7950.00 ml Output Total 700 ml Balance 7250.00 ml Intake IV Total 7950.00 ml Gastric Drainage Total 700 ml Imaging Last Impressions Abdomen/Pelvis CT 07/14/17 0045 Signed Impressions: Service Date/Time: July 01:48 - CONCLUSION: 1. Gastrostomy tube in expected position 2. Fecal impaction 3. Ascites and small bowel ileus Nj Romero MD Head CT 07/14/17 0000 Signed Impressions: Service Date/Time: July 01:43 - CONCLUSION: Atrophy. No evidence of acute intracranial pathology. Nj Romero MD Chest X-Ray 07/14/17 0000 Signed Impressions: Service Date/Time: July 03:26 - CONCLUSION: 1. Uncomplicated line placement. No evidence of pneumothorax. 2. Worsening pulmonary edema Nj Romero MD Chest CT 07/14/17 0000 Signed Impressions: Service Date/Time: July 01:48 - CONCLUSION: 1. Patchy alveolar disease characteristic of edema or pneumonia. 2. Moderate bilateral effusions 3. 2.3 cm right upper lobe mass. Malignancy is not excluded. Nj Romero MD Laboratory Test 07/13/17 23:10 07/13/17 23:21 07/13/17 23:25 07/13/17 23:34 White Blood Count 28.4 TH/MM3 Red Blood Count 4.07 MIL/MM3 Hemoglobin 11.7 GM/DL Hematocrit 37.4 % Mean Corpuscular Volume 92.0 FL Mean Corpuscular Hemoglobin 28.9 PG Mean Corpuscular Hemoglobin Concent 31.4 % Red Cell Distribution Width 16.7 % Platelet Count 270 TH/MM3 Mean Platelet Volume 9.0 FL Neutrophils (%) (Auto) 87.1 % Lymphocytes (%) (Auto) 7.9 % Monocytes (%) (Auto) 4.7 % Eosinophils (%) (Auto) 0.2 % Basophils (%) (Auto) 0.1 % Neutrophils # (Auto) 24.8 TH/MM3 Lymphocytes # (Auto) 2.2 TH/MM3 Monocytes # (Auto) 1.3 TH/MM3 Eosinophils # (Auto) 0.1 TH/MM3 Basophils # (Auto) 0.0 TH/MM3 CBC Comment AUTO DIFF Differential Total Cells Counted 100 Neutrophils % (Manual) 62 % Band Neutrophils % 33 % Lymphocytes % 3 % Eosinophils % 2 % Neutrophils # (Manual) 27.0 TH/MM3 Differential Comment FINAL DIFF MANUAL Toxic Granulation 2+ Toxic Vacuolation PRESENT Platelet Estimate NORMAL Platelet Morphology Comment NORMAL Acanthocytes OCC Blood Urea Nitrogen 11 MG/DL Creatinine 0.86 MG/DL Random Glucose 110 MG/DL Total Protein 5.6 GM/DL Albumin 1.4 GM/DL Calcium Level 8.0 MG/DL Magnesium Level 1.7 MG/DL Alkaline Phosphatase 235 U/L Aspartate Amino Transf (AST/SGOT) 73 U/L Alanine Aminotransferase (ALT/SGPT) 52 U/L Total Bilirubin 1.0 MG/DL Sodium Level 137 MEQ/L Potassium Level 4.0 MEQ/L Chloride Level 106 MEQ/L Carbon Dioxide Level 20.1 MEQ/L Anion Gap 11 MEQ/L Estimat Glomerular Filtration Rate 85 ML/MIN Phosphorus Level 3.6 MG/DL Total Creatine Kinase 69 U/L Troponin I LESS THAN 0.02 NG/ML B-Type Natriuretic Peptide 165 PG/ML Lipase 60 U/L Lactic Acid Level 4.3 mmol/L Prothrombin Time 16.0 SEC Prothromb Time International Ratio 1.4 RATIO Activated Partial Thromboplast Time 40.9 SEC Urine Color YELLOW Urine Turbidity HAZY Urine pH 5.5 Urine Specific [place] 1.024 Urine Protein TRACE mg/dL Urine Glucose (UA) NEG mg/dL Urine Ketones NEG mg/dL Urine Occult Blood NEG Urine Nitrite NEG Urine Bilirubin NEG Urine Urobilinogen 2.0 MG/DL Urine Leukocyte Esterase NEG Urine RBC 5 /hpf Urine WBC 2 /hpf Urine Squamous Epithelial Cells <1 /hpf Urine Transitional Epithelial Cells <1 /hpf Urine Uric Acid Crystals RARE /hpf Urine Amorphous Sediment RARE Urine Bacteria RARE /hpf Urine Hyaline Casts 3 /lpf Urine Mucus FEW /lpf Microscopic Urinalysis Comment CATH-CULTURE IND Test 07/14/17 01:02 07/14/17 02:15 07/14/17 03:33 07/14/17 03:40 Blood Gas Puncture Site LT RADIAL LINE Blood Gas Patient Temperature 98.6 98.6 Blood Gas HCO3 21 mmol/L Blood Gas Base Excess -7.3 mmol/L Blood Gas Oxygen Saturation 97 % Arterial Blood pH 7.11 Arterial Blood Partial Pressure CO2 69 mmHg Arterial Blood Partial Pressure O2 147 mmHg Arterial Blood Oxygen Content 14.2 Vol % Arterial Blood Carboxyhemoglobin 0.5 % Arterial Blood Methemoglobin 0.8 % Blood Gas Hemoglobin 10.2 G/DL Oxygen Delivery Device VENTILATOR VENTILATOR Blood Gas Ventilator Setting AC/RR18/VT550/PEEP10 AC/16/600/PEEP 10 Blood Gas Inspired Oxygen 100 % 70 % Nasal Screen MRSA (PCR) MRSA NOT DETECTED Lactic Acid Level 3.8 mmol/L Troponin I 0.03 NG/ML Venous Blood pH 7.12 Venous Blood Partial Pressure CO2 73 mmHg Venous Blood Partial Pressure O2 39 mmHg Venous Blood HCO3 23 mmol/L Venous Blood Oxygen Saturation 59 % Venous Blood Oxygen Content 9.3 Vol % Venous Blood Base Excess -5.4 mmol/L Test 07/14/17 05:05 Blood Gas Puncture Site ART LINE Blood Gas Patient Temperature 98.6 Blood Gas HCO3 20 mmol/L Blood Gas Base Excess -7.9 mmol/L Blood Gas Oxygen Saturation 83 % Arterial Blood pH 7.12 Arterial Blood Partial Pressure CO2 64 mmHg Arterial Blood Partial Pressure O2 59 mmHg Arterial Blood Oxygen Content 13.2 Vol % Arterial Blood Carboxyhemoglobin 0.3 % Arterial Blood Methemoglobin 1.0 % Blood Gas Hemoglobin 11.3 G/DL Oxygen Delivery Device VENTILATOR Blood Gas Ventilator Setting PC/AC Blood Gas Inspired Oxygen 100 % Date/Time Source Procedure Growth Status 07/13/17 23:22 Blood Peripheral Aerobic Blood Culture Pending Received 07/13/17 23:22 Blood Peripheral Anaerobic Blood Culture Pending Received 07/14/17 01:00 Sputum Endotracheal Gram Stain Pending Received 07/14/17 01:00 Sputum Endotracheal Sputum Culture Pending Received 07/13/17 23:34 Urine Catheterized Urine Urine Culture Pending Received Physical Examination HEENT: Normocephalic; atraumatic; no jaundice. CHEST: OETT to vent. CARDIAC: ST, hypotensive on multiple vasopressors ABDOMEN: Soft, distended, hypoactive bowel sounds. PEG tube site without redness, swelling. NGT clamped SKIN: Cool/dry NOC TECHNICIAN: Nonresponsive (Tran Arnold) Assessment and Plan Plan ASSESSMENT: - Ileus. CT abdomen and pelvis with IV contrast (07/14/17)---> Gastrostomy tube in expected position. Fecal impaction, ascites and small bowel ileus. Disimpact if able. PEG tube to LIWS. - Fecal impaction. Disimpact if able. - Dysphagia, esophageal stricture. Modified barium swallow (07/08/17)---> severe oral phase and severe pharyngeal phase dysphagia. Poor muscular function is present with absent epiglottic inversion resulting in poor airway protection during reflexive swallows triggered. The patient did not demonstrate reflexive cough in response to the above mentioned aspiration. EGD with PEG tube placement (07/09/17)--1. An esophageal stricture was found in the distal esophagus, scope could not advanced, TTS Balloon Dilation done 11 followed by 12 mm dilator, linear minor laceration of esophagus 2. 20 F PEG tube placed successfully. Placement confirmed with KUB and CT scan. - Malnutrition, Weight loss 60 lbs in 2 years. - Anemia. 11.0/33.9. - Respiratory failure, pleural effusion, aspiration pneumonia, severe ARDS. Vent. per CCM. - Pulmonary nodule. CT thorax 07/14 with patchy alveolar disease characteristic of edema or penumonia. Moderate bilateral effusions, 2.3 cm right upper lobe mass. Malignancy is not excluded. Hx head and neck. - Septic shock/Lactic acidosis. WBC 28.4. Bronchial washing, sputum, urine, blood cultures pending. Micafungin, Levaquin, Zosyn. - PEA arrest. S/P CPR for 11 minutes and received epinephrine 3, bicarbonate 2 amps, calcium chloride 1, before ROSC was obtained. - Hx tonsillar cancer. S/P resection, chemotherapy, and radiation, about 5-6 years ago in [place]. PLAN: - Pt with poor prognosis, family at bedside- would like to withdraw and have comfort measures only. - GI will sign off, please reconsult as needed - Pt seen and examined by Dr. Verma and myself and this note is written on his behalf (Tran Arnold) Physician Comments Seen and examined, comfort measures requested by family and I totally agree given his health status, poor nutrition and aspiration pneumonia, along with ileus, fecal impaction and other comorbid condition. Proper documents signed. (Jonathan Verma MD) Tran Arnold Jul 14, 2017 08:23 Jonathan Verma MD Jul 14, 2017 08:53
[2017-07-14] MEDS ORDERED: CALCIUM CHLORIDE 10% SOLN 1 GRAM/10 ML SYR IV ONE (08:53)
[2017-07-14] MEDS ORDERED: SODIUM BICARBONATE 8.4% INJ 50 MEQ/50 ML SYR IV ONE (08:53)
[2017-07-14] MEDS ORDERED: EPINEPHrine HCL (1:10,000) 1 MG/10 ML SYRINGE IV ONE (08:53)
[2017-07-14] MEDS ORDERED: SODIUM CHLORIDE 0.9% FLUSH 10 ML FLUSH IV FLUSH SCH (09:00)
[2017-07-14] MEDS ORDERED: PANTOPRAZOLE SODIUM 40 MG VIAL IV PUSH SCH (09:00)
[2017-07-14] MEDS ORDERED: THIAMINE INJ 100 MG in SODIUM CHLORIDE 0.9% INJ 100 ML IV SCH (09:00)
[2017-07-14] MEDS ORDERED: DOCUSATE SODIUM 50 MG/SENNA 8.6 MG TAB PO SCH (09:00)
--- NOTE | 2017-07-14 09:20 | HHI.DS ---
Summary Note Admission Date Jul 14, 2017 at 00:12 Admitting Diagnosis cardiac arrest Diagnosis at Time of : (1) Asystole ICD Code: I46.9 - Cardiac arrest, cause unspecified Diagnosis: Principal (2) Septic shock ICD Code: A41.9 - Sepsis, unspecified organism; R65.21 - Severe sepsis with septic shock Diagnosis: Principal (3) ARDS (adult respiratory distress syndrome) ICD Code: J80 - Acute respiratory distress syndrome Diagnosis: Principal (4) Sepsis with multi-organ dysfunction ICD Code: A41.9 - Sepsis, unspecified organism; R65.20 - Severe sepsis without septic shock Diagnosis: Principal (5) Aspiration into lower respiratory tract ICD Code: T17.800A - Unspecified foreign body in other parts of respiratory tract causing asphyxiation, initial encounter Diagnosis: Principal (6) PEA (Pulseless electrical activity) ICD Code: I46.9 - Cardiac arrest, cause unspecified Diagnosis: Principal (7) Encephalopathy acute ICD Code: G93.40 - Encephalopathy, unspecified Diagnosis: Principal (8) Respiratory failure ICD Code: J96.90 - Respiratory failure, unspecified, unspecified whether with hypoxia or hypercapnia Diagnosis: Principal (9) Pulmonary nodule ICD Code: R91.1 - Solitary pulmonary nodule Diagnosis: Secondary (10) Tonsillar cancer ICD Code: C09.9 - Malignant neoplasm of tonsil, unspecified Diagnosis: Secondary (11) Frailty ICD Code: R54 - Age-related physical debility Diagnosis: Secondary (12) Ileus ICD Code: K56.7 - Ileus, unspecified Diagnosis: Secondary (13) Dysphagia ICD Code: R13.10 - Dysphagia, unspecified Diagnosis: Secondary (14) Severe protein-calorie malnutrition ICD Code: E43 - Unspecified severe protein-calorie malnutrition Diagnosis: Secondary Procedures Central line placement, arterial line placement Brief History 82 yo WM with PMH of tonsillar cancer s/p resection, chemo and radiation 5-6 years ago. [place] [facility] [place] due to chronic dysphagia and weight loss of 60 pounds over 2 years. He had modified barium swallow that showed moderate penetration. He underwent EGD with dilation of esophageal stricture and placement of 20F PEG on 07/09/[address] Veram. Continuous tube feeds were advanced and then he was transitioned to bolus feeds. WBC increased to 27k on 11/7 after being normal previously. KUB confirmed satisfactory PEG placement and CT abd unremarkable. Records indicate that he was experiencing a cough but was insistent upon discharge and [facility] Upon arrival he reportedly had respiratory distress with "wet cough" and nurse called [facility]. Upon [facility] arrival he was hypoxic and in respiratory distress and they proceeded with intubation. They were uncertain if it was esophageal intubation because vomitus was noted in the ETT. The ETT was removed and respirations were assisted by BVM until arrival to ED. He arrived covered in vomitus and was intubated by ED physician who states there was vomitus suctioned from tube after endotracheal intubation. Post intubation he had bradycardia and then PEA and underwent CPR for 11 minutes with administration of epinephrine 3, bicarbonate 2 amps, calcium chloride 1. ROSC was obtained. R IJ CVL was attempted unsuccessfully by ED physician. OGT has been inserted and had nearly 700 mL of output with appearance of tube feeds mixed with gastric secretions. PEG flushes but does not withdraw. He received fentanyl 50 mcg IV and Ativan 1 mg IV for sedation prior to my arrival. He is hypotensive. CBC/BMP: 07/13/17 2310 07/13/17 2310 Significant Findings Laboratory Tests Test 07/13/17 23:10 07/13/17 23:21 07/13/17 23:25 07/13/17 23:34 White Blood Count 28.4 TH/MM3 (4.0-11.0) Red Blood Count 4.07 MIL/MM3 (4.50-5.90) Hemoglobin 11.7 GM/DL (13.0-17.0) Hematocrit 37.4 % (39.0-51.0) Mean Corpuscular Hemoglobin Concent 31.4 % (32.0-36.0) Neutrophils (%) (Auto) 87.1 % (16.0-70.0) Lymphocytes (%) (Auto) 7.9 % (9.0-44.0) Neutrophils # (Auto) 24.8 TH/MM3 (1.8-7.7) Monocytes # (Auto) 1.3 TH/MM3 (0-0.9) Band Neutrophils % 33 % (0-6) Lymphocytes % 3 % (9-44) Neutrophils # (Manual) 27.0 TH/MM3 (1.8-7.7) Toxic Granulation 2+ (NORMAL) Toxic Vacuolation PRESENT (NONE SEEN) Random Glucose 110 MG/DL (74-106) Total Protein 5.6 GM/DL (6.4-8.2) Albumin 1.4 GM/DL (3.4-5.0) Calcium Level 8.0 MG/DL (8.5-10.1) Alkaline Phosphatase 235 U/L (45-117) Aspartate Amino Transf (AST/SGOT) 73 U/L (15-37) Carbon Dioxide Level 20.1 MEQ/L (21.0-32.0) Estimat Glomerular Filtration Rate 85 ML/MIN (>89) Troponin I LESS THAN 0.02 NG/ML B-Type Natriuretic Peptide 165 PG/ML (0-100) Lipase 60 U/L (73-393) Lactic Acid Level 4.3 mmol/L (0.4-2.0) Prothrombin Time 16.0 SEC (9.8-11.6) Activated Partial Thromboplast Time 40.9 SEC (24.3-30.1) Urine Turbidity HAZY (CLEAR) Urine RBC 5 /hpf (0-3) Urine Uric Acid Crystals RARE /hpf (NONE) Urine Bacteria RARE /hpf (NONE) Urine Mucus FEW /lpf (OCC) Test 07/14/17 01:02 07/14/17 02:15 07/14/17 03:33 07/14/17 03:40 Blood Gas HCO3 21 mmol/L (22-26) Blood Gas Base Excess -7.3 mmol/L (-2-2) Arterial Blood pH 7.11 (7.380-7.420) Arterial Blood Partial Pressure CO2 69 mmHg (38-42) Arterial Blood Partial Pressure O2 147 mmHg (61-120) Blood Gas Hemoglobin 10.2 G/DL (12.0-16.0) Lactic Acid Level 3.8 mmol/L (0.4-2.0) Venous Blood pH 7.12 (7.360-7.400) Venous Blood Partial Pressure CO2 73 mmHg (44-48) Venous Blood Oxygen Saturation 59 % (70-76) Venous Blood Base Excess -5.4 mmol/L (-2-2) Test 07/14/17 05:05 Blood Gas HCO3 20 mmol/L (22-26) Blood Gas Base Excess -7.9 mmol/L (-2-2) Blood Gas Oxygen Saturation 83 % (90-100) Arterial Blood pH 7.12 (7.380-7.420) Arterial Blood Partial Pressure CO2 64 mmHg (38-42) Arterial Blood Partial Pressure O2 59 mmHg (61-120) Blood Gas Hemoglobin 11.3 G/DL (12.0-16.0) Imaging CT chest showed patchy bilateral infiltrates and moderate effusions CT abdomen and pelvis shows ascites and small bowel ileus Hospital Course 82 yo WM with PMH of tonsillar cancer s/p resection, chemo and radiation 5-6 years ago admitted for severe aspiration pneumonia, ARDS, multiorgan failure and refractory septic shock. See admit H&P today for details. Patient was treated with ventilatory support, broad-spectrum antibiotics and vasopressors for severe septic shock. Despite maximal aggressive therapy and four pressors at maximum dose, patient continued to deteriorate, CODE STATUS was changed to a DNR. I discussed with family and they expressed wishes to withdraw life support and make him comfortable. But prior to changing to comfort measures, patient declined further and suffered asystolic cardiac arrest at 0854 AM and . Time of 0854 on 07/14/17 Jaz Suresh MD Jul 14, 2017 09:20
--- NOTE | 2017-07-14 09:21 | DEATH SUM ---
Summary Demographics Date Pronounced : Jul 14, 2017 Time Of : 08:54 Pronounced By: Dr. Suresh Preliminary Cause of : Multi Organ Failure Jaz Suresh MD Jul 14, 2017 09:20
--- NOTE | 2017-07-14 13:54 | EKG ---
Date Performed: 07/14/2017 Time Performed: 07:00:22 PTAGE: 82 years EKG: Baseline artifact present Unclear underlying rhythm, probably sinus tachycardia. LOW QRS VO LTAGE IN EXTREMITY LEADS PATTERN CONSISTENT WITH PULMONARY DISEASE ABNORMAL ECG Compared to prior luz ctrocardiogram, it appears sinus tachycardia has replaced atrial fibrillation although baseline artif act makes comparison and interpretation difficult. PREVIOUS TRACING : 07/13/2017 23.04 DOCTOR: Phong Seo Interpretating Date/Time 07/14/2017 13:53:52
[2017-07-15] MEDS ORDERED: VANCOMYCIN INJ 1,250 MG in SODIUM CHLOR 0.9% 250 ML INJ 250 ML IV SCH (05:00)
[2017-07-17] MEDS ORDERED: PHARMACY ORDERED LAB ONE (04:45)
== END 2017-07-14 08:54 | disposition expired | DRG 853 ==
LOC: NEPC 22:37 → NEDA 07-14 00:12 → HIMN 07-14 02:00
PROVIDERS: ADMIT Emergency Medicine; ATTEND Emergency Medicine
PROC: 0B9D8ZX Drainage of Right Middle Lung Lobe, Via Natural or Artificial Opening Endoscopic, Diagnostic (ICD-10-PCS; principal; 2017-07-14)
PROC: 5A12012 Performance of Cardiac Output, Single, Manual (ICD-10-PCS; 2017-07-14)
PROC: 5A1935Z Respiratory Ventilation, Less than 24 Consecutive Hours (ICD-10-PCS; 2017-07-14)
PROC: 0BH17EZ Insertion of Endotracheal Airway into Trachea, Via Natural or Artificial Opening (ICD-10-PCS; 2017-07-14)
PROC: 05HN33Z Insertion of Infusion Device into Left Internal Jugular Vein, Percutaneous Approach (ICD-10-PCS; 2017-07-14)
PROC: 0BC98ZZ Extirpation of Matter from Lingula Bronchus, Via Natural or Artificial Opening Endoscopic (ICD-10-PCS; 2017-07-14)
PROC: 0BC48ZZ Extirpation of Matter from Right Upper Lobe Bronchus, Via Natural or Artificial Opening Endoscopic (ICD-10-PCS; 2017-07-14)
PROC: 0BC58ZZ Extirpation of Matter from Right Middle Lobe Bronchus, Via Natural or Artificial Opening Endoscopic (ICD-10-PCS; 2017-07-14)
PROC: 0BC68ZZ Extirpation of Matter from Right Lower Lobe Bronchus, Via Natural or Artificial Opening Endoscopic (ICD-10-PCS; 2017-07-14)
PROC: 0BCB8ZZ Extirpation of Matter from Left Lower Lobe Bronchus, Via Natural or Artificial Opening Endoscopic (ICD-10-PCS; 2017-07-14)
DX: A41.9 Sepsis, unspecified organism (principal); J69.0 Pneumonitis due to inhalation of food and vomit; I46.9 Cardiac arrest, cause unspecified; R65.21 Severe sepsis with septic shock; G93.40 Encephalopathy, unspecified; J90 Pleural effusion, not elsewhere classified; J96.01 Acute respiratory failure with hypoxia; J96.02 Acute respiratory failure with hypercapnia; E43 Unspecified severe protein-calorie malnutrition; R18.8 Other ascites; K56.7 Ileus, unspecified; E87.2 Acidosis; Z68.1 Body mass index [BMI] 19.9 or less, adult; J98.11 Atelectasis; M19.90 Unspecified osteoarthritis, unspecified site; F32.9 Major depressive disorder, single episode, unspecified; F17.210 Nicotine dependence, cigarettes, uncomplicated; D64.9 Anemia, unspecified; H57.02 Anisocoria; K56.41 Fecal impaction; R13.13 Dysphagia, pharyngeal phase; Z51.5 Encounter for palliative care; Z66 Do not resuscitate; R91.1 Solitary pulmonary nodule; Z93.1 Gastrostomy status; Z92.21 Personal history of antineoplastic chemotherapy; Z92.3 Personal history of irradiation; Z85.818 Personal history of malignant neoplasm of other sites of lip, oral cavity, and pharynx
CPT/HCPCS: 31500; 31624; 36556; 36600; 36620; 51702; 70450; 71010; 71260; 74177; 76937; 80053; 81001; 82550; 82805; 83605; 83690; 83735; 83880; 84100; 84484; 85007; 85027; 85610; 85730; 87040; 87070; 87086; 87205; 87641; 92950; 93005; 94002; 94664; 94799; 96374; 96375; 99292; C9113; J0171; J1325; J1720; J1956; J2060; J2248; J2370; J2543; J2765; J3010; J3370; J3411; J3475; J7030; J7050; J7060; J7070; J7120; Q9963; Q9967